=== PATIENT | female | born 1940 | race Two or more races ===

== ENCOUNTER 2023-08-05 17:16 | Emergency (ER) | payer OTHER ==
[~2023-08-05] VITALS: Ht 170.2 cm; Wt 88.5 kg
[2023-08-05] MEDS ORDERED: COZAAR50 MG PO (17:32)
[2023-08-05] MEDS ORDERED: SIMVASTATIN80 MG PO (17:32)
[2023-08-05] MEDS ORDERED: LEXAPRO5 MG PO (17:33)
[2023-08-05] MEDS ORDERED: NAMENDA10 MG PO (17:33)
[2023-08-05] MEDS ORDERED: ARICEPT10 MG PO (17:33)
[2023-08-05] MEDS ORDERED: LEVOTHYROXINE100 MC1 PO (17:34)
[2023-08-05] MEDS ORDERED: CIPRO500 MG PO (18:55)
== END 2023-08-05 19:05 | disposition home or self-care (01) ==
LOC: ER 17:16
PROVIDERS: General Practice
DX: T50.905A Adverse effect of unspecified drugs, medicaments and biological substances, initial encounter (principal); X58.XXXA Exposure to other specified factors, initial encounter; Y92.89 Other specified places as the place of occurrence of the external cause; N39.0 Urinary tract infection, site not specified; I10 Essential (primary) hypertension; E03.9 Hypothyroidism, unspecified